=== PATIENT | male | born 1945 | race Asian ===

== ENCOUNTER 2016-10-16 08:28 | Day surgery (SDC) | payer OTHER ==
[2016-10-10 10:01] LABS: BASOPHILS % (AUTO) 0.4 % (0.0-2.0); EOSINOPHILS % (AUTO) 3.3 % (1.0-6.0); HEMATOCRIT 29.1 % (41-53); HEMOGLOBIN 10.2 g/dL (13.5-17.5); MEAN CORPUSCULAR HEMOGLOBIN 31.4 pg (26.0-34.0); MEAN CORPUSCULAR HGB CONC 35.1 G/dL (31.0-37.0); MEAN CORPUSCULAR VOLUME 89 fL (80-100); MONOCYTES # (AUTO) 0.3 K/uL (0.1-1.0); MONOCYTES % (AUTO) 7.2 % (2.0-9.0); NEUTROPHILS # (AUTO) 3.3 K/uL (1.8-7.7); NEUTROPHILS % (AUTO) 69.1 % (40.0-70.0); PLATELET COUNT (AUTO) 177 K/uL (150-450); RED BLOOD CELL COUNT(AUTO) 3.25 MIL/uL (4.50-5.90); RED CELL DISTRIBUTION WIDTH 15.7 % (11.5-14.5); WHITE BLOOD COUNT (AUTO) 4.8 K/uL (4.5-11.0)
[2016-10-10 10:09] LABS: CALCIUM, TOTAL 9.3 mg/dL (8.8-10.5); CREATININE 1.73 mg/dL (0.60-1.30); POTASSIUM 4.6 mmol/L (3.5-5.1)
[~2016-10-16] VITALS: Ht 170.2 cm; Wt 93.6 kg
[~2016-10-16 08:28] MED LIST: ALLO100T PO; ASPI81 PO; CARV25 PO; CLOP75 PO; EPHEDrine SULFATE 50 MG/ML VIAL IM ONE; FENO160 PO; FISH1CAP49 PO; FOLI1TAB15 PO; FURO40 PO; FentaNYL CITRATE-PF 100 MCG/2 ML VIAL IVP ONE; GABA-531 PO; INSLAN SQ; INSU100C14 SQ; ISOS60TA PO; LOSA50TA37 PO; METF500T4 PO; METOCLOPRAMIDE HCL 5 MG/ML 2 ML VIAL IVP ONE; MIDAZOLAM HCL 2 MG/2 ML VIAL IVP ONE; MULT1CAP32 PO; NITR.4 SL; ONDANSETRON HCL 4 MG/2 ML VIAL IVP ONE; PANT40TA25 PO; PHEN-857 PO; PIOG30TA2 PO; PROPOFOL 1% 20 ML VIAL IVP ONE; ROSU20 PO; SODI650T PO; TAMS0.4C32 PO; VITAD1000 PO
[2016-10-16] MEDS ORDERED: CeFAZolin 2 GM/DEXTROSE 50 ML IV ONE ×2 (08:30→08:39)
[2016-10-16] MEDS ORDERED: RINGERS SOLUTION,LACTATED 1,000 ML IV ONE ×2 (08:30→08:39)
[2016-10-16] MEDS ORDERED: GUM MASTIC/STORAX/MSAL/ALCOHOL LIQUID 0.67 ML VIAL TP ONE (08:35)
[2016-10-16 09:47] LABS: GLUCOSE,POINT OF CARE 145 MG/DL (70-110)
[2016-10-16] MEDS: LIDOCAINE HCL 2%/EPI 1:200,000/PF 10 ML VIAL ONE ×2 (11:25→11:34)
[2016-10-16] MEDS: BUPIVACAINE HCL/PF 0.5% 30 ML VIAL ONE ×2 (11:25→11:34)
[2016-10-16] MEDS ORDERED: FentaNYL CITRATE-PF 100 MCG/2 ML VIAL IVP PRN (11:45)
[2016-10-16] MEDS ORDERED: MEPERIDINE-PF 25 MG/ML SYRINGE IVP PRN (11:45)
[2016-10-16] MEDS ORDERED: HYDROmorphone 2 MG/ML SYRINGE IVP PRN (11:45)
[2016-10-16] MEDS ORDERED: HYDROCODONE/ACETAMINOPHEN 5-325 MG TABLET PO PRN (12:00)
[2016-10-16] MEDS ORDERED: ACETAMINOPHEN 500 MG TABLET PO PRN (12:00)
[2016-10-16] MEDS ORDERED: OXYGEN THERAPY IH SCH (20:00)
== END 2016-10-16 14:35 | disposition home or self-care (01) ==
LOC: SURGERY 08:28
PROVIDERS: ATTEND Surgery
DX: L72.0 Epidermal cyst (principal); I10 Essential (primary) hypertension; E11.40 Type 2 diabetes mellitus with diabetic neuropathy, unspecified; E66.9 Obesity, unspecified; K21.9 Gastro-esophageal reflux disease without esophagitis; I25.10 Atherosclerotic heart disease of native coronary artery without angina pectoris; Z98.42 Cataract extraction status, left eye; Z98.41 Cataract extraction status, right eye; Z89.511 Acquired absence of right leg below knee; Z89.422 Acquired absence of other left toe(s); Z87.891 Personal history of nicotine dependence; Z95.5 Presence of coronary angioplasty implant and graft
CPT/HCPCS: 11406; 12034; 36415; 80048; 82962; 83036; 85025; 93005; J0690; J3490 ×2; J7120; 88304; J2250; J2405; J2704; J2765; J3010

== ENCOUNTER 2016-11-02 08:50 | Emergency (ER) | payer OTHER ==
[~2016-11-02] VITALS: Ht 167.6 cm; Wt 91.8 kg
[~2016-11-02 08:50] MED LIST changes: -EPHEDrine SULFATE 50 MG/ML VIAL IM ONE; -FentaNYL CITRATE-PF 100 MCG/2 ML VIAL IVP ONE; -METOCLOPRAMIDE HCL 5 MG/ML 2 ML VIAL IVP ONE; -MIDAZOLAM HCL 2 MG/2 ML VIAL IVP ONE; -ONDANSETRON HCL 4 MG/2 ML VIAL IVP ONE; -PROPOFOL 1% 20 ML VIAL IVP ONE
[2016-11-02 09:02] LABS: GLUCOSE,POINT OF CARE 248 MG/DL (70-110)
[2016-11-02] MEDS ORDERED: PREG75 PO (09:09)
[2016-11-02] MEDS ORDERED: BRIM15DR8 OU (09:09)
[2016-11-02 09:18] VITALS: BP 154/59
[2016-11-02 10:01] LABS: APPEARANCE,URINE CLOUDY (CLEAR); GLUCOSE, URINE (UA) >=1000 mg/dL (NEGATIVE); KETONES,URINE NEGATIVE (NEGATIVE); LEUKOCYTE ESTERASE ,URINE SMALL (NEGATIVE); OCCULT BLOOD,URINE LARGE (NEGATIVE); PROTEIN,URINE SEE CONFIRM (NEGATIVE)
[2016-11-02 10:25] LABS: ADD UA MICROSCOPIC YES
[2016-11-02 10:27] LABS: RBC,URINE 26-50 /HPF (0-2); SQUAMOUS EPITHELIAL CELL,UR Moderate /LPF (None Seen); SULFOSALICYLIC ACID,URINE 2+ (Negative)
[2016-11-02] MEDS ORDERED: CIPROFLOXACIN HCL 250 MG TABLET PO ONE (11:00)
[2016-11-02] MEDS ORDERED: PHENAZOPYRIDINE HCL 100 MG TABLET PO ONE (11:00)
== END 2016-11-02 11:11 | disposition home or self-care (01) ==
LOC: EMS 08:53
DX: N39.0 Urinary tract infection, site not specified (principal); I25.10 Atherosclerotic heart disease of native coronary artery without angina pectoris; E11.9 Type 2 diabetes mellitus without complications; N28.9 Disorder of kidney and ureter, unspecified; Z79.4 Long term (current) use of insulin; Z79.82 Long term (current) use of aspirin; Z87.442 Personal history of urinary calculi; Z95.5 Presence of coronary angioplasty implant and graft; Z88.8 Allergy status to other drugs, medicaments and biological substances; Z91.040 Latex allergy status
CPT/HCPCS: 82962; 87086; 99284

== ENCOUNTER 2016-11-08 17:51 | Emergency (ER) | payer OTHER ==
[~2016-11-08] VITALS: Ht 167.6 cm; Wt 91.8 kg
[2016-11-08] VITALS (9 sets, daily range): BP systolic 120–140; BP diastolic 57–67
[~2016-11-08 17:51] MED LIST changes: +BRIM15DR8 OU; +PREG75 PO
[2016-11-08 18:31] LABS: BASOPHILS % (AUTO) 0.7 % (0.0-2.0); EOSINOPHILS % (AUTO) 3.8 % (1.0-6.0); HEMATOCRIT 25.1 % (41-53); HEMOGLOBIN 8.7 g/dL (13.5-17.5); LYMPHOCYTES # (AUTO) 1.1 K/uL (1.0-4.8); LYMPHOCYTES % (AUTO) 24.1 % (22.0-44.0); MEAN CORPUSCULAR HEMOGLOBIN 30.8 pg (26.0-34.0); MEAN CORPUSCULAR HGB CONC 34.7 G/dL (31.0-37.0); MEAN CORPUSCULAR VOLUME 89 fL (80-100); MONOCYTES # (AUTO) 0.4 K/uL (0.1-1.0); NEUTROPHILS # (AUTO) 2.9 K/uL (1.8-7.7); NEUTROPHILS % (AUTO) 62.4 % (40.0-70.0); PLATELET COUNT (AUTO) 163 K/uL (150-450); RED BLOOD CELL COUNT(AUTO) 2.82 MIL/uL (4.50-5.90); RED CELL DISTRIBUTION WIDTH 15.4 % (11.5-14.5); WHITE BLOOD COUNT (AUTO) 4.7 K/uL (4.5-11.0)
[2016-11-08 18:37] LABS: CALCIUM, TOTAL 9.4 mg/dL (8.8-10.5); CREATININE 2.52 mg/dL (0.60-1.30); POTASSIUM 4.2 mmol/L (3.5-5.1)
[2016-11-08 18:43] LABS: ALBUMIN 3.6 g/dL (3.4-5.0); BILIRUBIN,TOTAL 0.5 mg/dL (0.1-1.0); TOTAL PROTEIN, SERUM 7.2 g/dL (6.4-8.2)
[2016-11-08] MEDS ORDERED: SODIUM CHLORIDE 0.9% 500 ML IV ONE (19:30)
[2016-11-08] MEDS ORDERED: INSLAN SQ (19:56)
[2016-11-08] MEDS ORDERED: CARV12 PO (19:56)
[2016-11-08 19:58] LABS: PROTHROMBIN TIME 10.9 SEC (9.4-11.6)
== END 2016-11-09 00:01 | disposition home or self-care (01) ==
LOC: EMS 17:53
DX: D64.9 Anemia, unspecified (principal); K92.1 Melena; E11.9 Type 2 diabetes mellitus without complications; I10 Essential (primary) hypertension; I25.10 Atherosclerotic heart disease of native coronary artery without angina pectoris; N28.9 Disorder of kidney and ureter, unspecified; Z95.5 Presence of coronary angioplasty implant and graft; Z79.4 Long term (current) use of insulin; Z98.61 Coronary angioplasty status; Z88.8 Allergy status to other drugs, medicaments and biological substances; Z91.040 Latex allergy status
CPT/HCPCS: 36415; 36430; 80053; 82270; 82271; 85025; 85610; 86850; 86900; 86901; 86920; 93005; 96360; 96361; 99285; J7030; P9016

== ENCOUNTER 2019-06-13 12:26 | Inpatient (IN) | payer OTHER ==
[~2019-06-13] VITALS: Ht 165.1 cm; Wt 97.5 kg
[~2019-06-13 12:26] MED LIST changes: +ASPI-728 PO; -ASPI81 PO; +CARV12 PO; +CHOL100018 PO; -CLOP75 PO; +CLOP75TA3 PO; -FENO160 PO; +FENO160T41 PO; +LOSA-88 PO; -LOSA50TA37 PO; +METF-960 PO; -METF500T4 PO; -NITR.4 SL; +NITR0.4T52 SL; -PHEN-857 PO; +PHEN-922 PO; +PIOG30TA10 PO; -PIOG30TA2 PO; -ROSU20 PO; +ROSU20TA23 PO; +TAMS-13 PO; -TAMS0.4C32 PO; -VITAD1000 PO
[2019-06-13] MEDS ORDERED: DEXTROSE 50%-WATER 25 GM/50 ML SYRINGE IVP ONE (12:45)
[2019-06-13] MEDS ORDERED: 0.9% SODIUM CHLORIDE 10 ML SYRINGE IVP PRN (13:00)
[2019-06-13 13:22] LABS: BASOPHILS % (AUTO) 0.9 % (0.0-2.0); EOSINOPHILS % (AUTO) 4.4 % (1.0-6.0); HEMATOCRIT 34.7 % (41-53); HEMOGLOBIN 11.5 g/dL (13.5-17.5); LYMPHOCYTES # (AUTO) 0.6 K/uL (1.0-4.8); LYMPHOCYTES % (AUTO) 12.1 % (22.0-44.0); MEAN CORPUSCULAR HEMOGLOBIN 29.4 pg (26.0-34.0); MEAN CORPUSCULAR HGB CONC 33.2 G/dL (31.0-37.0); MEAN CORPUSCULAR VOLUME 89 fL (80-100); MONOCYTES # (AUTO) 0.3 K/uL (0.1-1.0); MONOCYTES % (AUTO) 6.2 % (2.0-9.0); NEUTROPHILS # (AUTO) 3.6 K/uL (1.8-7.7); NEUTROPHILS % (AUTO) 76.4 % (40.0-70.0); PLATELET COUNT (AUTO) 157 K/uL (150-450); RED BLOOD CELL COUNT(AUTO) 3.91 MIL/uL (4.50-5.90); RED CELL DISTRIBUTION WIDTH 16.3 % (11.5-14.5)
[2019-06-13 13:36] LABS: CALCIUM, TOTAL 8.9 mg/dL (8.8-10.5); CREATININE 1.63 mg/dL (0.60-1.30); POTASSIUM 3.5 mmol/L (3.5-5.1)
[2019-06-13 13:38] LABS: INR 1.1 (0.9-1.1)
[2019-06-13 14:02] LABS: ALBUMIN 3.8 g/dL (3.4-5.0); BILIRUBIN,TOTAL 0.6 mg/dL (0.1-1.0); TOTAL PROTEIN, SERUM 7.3 g/dL (6.4-8.2)
[2019-06-13 14:17] LABS: GLUCOSE,POINT OF CARE 273 MG/DL (70-110)
[2019-06-13 16:23] LABS: GLUCOSE,POINT OF CARE 143 MG/DL (70-110)
[2019-06-13 17:25] VITALS: BP 152/86
[2019-06-13] MEDS ORDERED: MORPHINE SULFATE 2 MG/ML SYRINGE IVP PRN (18:00)
[2019-06-13] MEDS ORDERED: ACETAMINOPHEN 325 MG TABLET PO PRN (18:00)
[2019-06-13] MEDS ORDERED: DEXTROSE 50%-WATER 25 GM/50 ML SYRINGE IVP PRN (18:00)
[2019-06-13] MEDS ORDERED: MAGNESIUM HYDROXIDE SUSPENSION 30 ML UDCUP PO PRN (18:00)
[2019-06-13] MEDS ORDERED: BISACODYL 10 MG RECTAL RECTAL SUPPOSITORY PR PRN (18:00)
[2019-06-13] MEDS ORDERED: ZOLPIDEM TARTRATE 5 MG TABLET PO PRN (18:00)
[2019-06-13] MEDS ORDERED: HYDROCODONE/ACETAMINOPHEN 5-325 MG TABLET PO PRN (18:00)
[2019-06-13] MEDS ORDERED: ONDANSETRON HCL 4 MG/2 ML VIAL IVP PRN (18:00)
[2019-06-13] MEDS ORDERED: FOLI1 PO (18:17)
[2019-06-13] MEDS ORDERED: ISOS60TA4 PO (18:17)
[2019-06-13] MEDS ORDERED: FISH1 PO (18:17)
[2019-06-13] MEDS ORDERED: CHOL100018 PO (18:17)
[2019-06-13] MEDS ORDERED: LOSA25TA71 PO (18:29)
[2019-06-13 19:40] VITALS: BP 137/51
[2019-06-13] MEDS ORDERED: TAMSULOSIN HCL 0.4 MG CAPSULE PO SCH (21:00)
[2019-06-13] MEDS ORDERED: CARVEDILOL 25 MG TABLET PO SCH (21:00)
[2019-06-13] MEDS: DOCUSATE SODIUM 100 MG CAPSULE PO SCH (21:19)
[2019-06-13] MEDS: SODIUM BICARBONATE 650 MG TABLET PO SCH (21:19)
[2019-06-13 21:22] LABS: GLUCOMETER DEV NAME(LOC) 5N.2; GLUCOSE,POINT OF CARE 172 MG/DL (70-110)
[2019-06-13 23:44] VITALS: BP 125/55
[2019-06-14] MEDS: HEPARIN SODIUM,PORCINE 5,000 UNITS/ML VIAL SQ SCH ×2 (01:42→08:12)
[2019-06-14 04:30] VITALS: BP 134/69
[2019-06-14 06:48] LABS: GLUCOMETER DEV NAME(LOC) 5N.2; GLUCOSE,POINT OF CARE 165 MG/DL (70-110)
[2019-06-14 07:23] LABS: CALCIUM, TOTAL 9.1 mg/dL (8.8-10.5); CREATININE 1.45 mg/dL (0.60-1.30); POTASSIUM 4.4 mmol/L (3.5-5.1)
[2019-06-14 07:31] LABS: HEMOGLOBIN A1C 7.9 % (3.8-5.6)
[2019-06-14 08:00] VITALS: BP 148/64
[2019-06-14] MEDS: DOCUSATE SODIUM 100 MG CAPSULE PO SCH (08:13)
[2019-06-14] MEDS: SODIUM BICARBONATE 650 MG TABLET PO SCH (08:13)
[2019-06-14] MEDS ORDERED: ASPIRIN 81 MG CHEWABLE TABLET PO SCH (09:00)
[2019-06-14] MEDS ORDERED: CHOLECALCIFEROL (VIT D3) 1,000 UNITS TABLET PO SCH (09:00)
[2019-06-14] MEDS ORDERED: CLOPIDOGREL BISULFATE 75 MG TABLET PO SCH (09:00)
[2019-06-14] MEDS ORDERED: CARVEDILOL 12.5 MG TABLET PO SCH (09:00)
[2019-06-14] MEDS ORDERED: FUROSEMIDE 40 MG TABLET PO SCH (09:00)
[2019-06-14] MEDS ORDERED: FENOFIBRATE 160 MG TABLET PO SCH (09:00)
[2019-06-14] MEDS ORDERED: ISOSORBIDE MONONITRATE 60 MG ER TABLET PO SCH (09:00)
[2019-06-14] MEDS ORDERED: ROSUVASTATIN CALCIUM 20 MG TABLET PO SCH (09:00)
[2019-06-14] MEDS ORDERED: GABAPENTIN 300 MG CAPSULE PO SCH (09:00)
[2019-06-14] MEDS ORDERED: ALLOPURINOL 100 MG TABLET PO SCH (09:00)
[2019-06-14] MEDS ORDERED: FOLIC ACID 1 MG TABLET PO SCH (09:00)
[2019-06-14] MEDS ORDERED: PANTOPRAZOLE SODIUM 40 MG DR TABLET PO SCH (09:00)
[2019-06-14 11:52] VITALS: BP 113/49
[2019-06-15 04:35] LABS: GLUCOMETER DEV NAME(LOC) 5S.2A; GLUCOSE,POINT OF CARE 318 MG/DL (70-110)
== END 2019-06-14 14:55 | disposition home or self-care (01) | DRG 420 ==
LOC: EMS 12:28 → 5S 15:34
PROVIDERS: ADMIT Internal Medicine; ATTEND Internal Medicine
DX: E11.649 Type 2 diabetes mellitus with hypoglycemia without coma (principal); G93.41 Metabolic encephalopathy; I50.9 Heart failure, unspecified; E66.01 Morbid (severe) obesity due to excess calories; E11.22 Type 2 diabetes mellitus with diabetic chronic kidney disease; I13.0 Hypertensive heart and chronic kidney disease with heart failure and stage 1 through stage 4 chronic kidney disease, or unspecified chronic kidney disease; I10 Essential (primary) hypertension; E78.00 Pure hypercholesterolemia, unspecified; N40.0 Benign prostatic hyperplasia without lower urinary tract symptoms; M10.9 Gout, unspecified; E78.5 Hyperlipidemia, unspecified; N18.9 Chronic kidney disease, unspecified; I25.10 Atherosclerotic heart disease of native coronary artery without angina pectoris; Z86.73 Personal history of transient ischemic attack (TIA), and cerebral infarction without residual deficits; Z95.5 Presence of coronary angioplasty implant and graft; Z89.511 Acquired absence of right leg below knee; Z91.040 Latex allergy status; Z91.048 Other nonmedicinal substance allergy status; Z87.442 Personal history of urinary calculi; Z79.4 Long term (current) use of insulin; Z68.35 Body mass index [BMI] 35.0-35.9, adult
CPT/HCPCS: 70450; 82948; 83036; 83605; 93005; 99291; G0378; J1644